=== PATIENT | male | born 1995 | race Caucasian/White ===

== ENCOUNTER 2022-05-21 13:09 | Day surgery (SDC) | payer BC ==
[~2022-05-21 13:09] MED LIST: Iopamidol-370 76% 500 ML MDV (1 ML CHARGE) ONE
[2022-05-21 14:36] LABS: #Basophils 0.1 thou/uL (0.0-0.2); #Eosinphils 0.1 thou/uL (0.0-0.7); #Lymphocytes 2.5 thou/uL (1.20-3.40); %Basophils 0.7 % (0.0-1.0); %Eosinophils 0.8 % (0.0-10.0); %Lymphocytes 23.8 % (21.0-51.0); %Monocytes 9.3 % (0.0-10.0); %Neutrophils 65.4 % (42.0-75.0); Hemoglobin 16.5 g/dL (14.0-18.0); Mean Corpuscular HGB CONC 35.2 g/dL (32.0-36.0); Mean Corpuscular Hemoglobin 30.8 pg (27.0-31.0); Mean Corpuscular Volume 87.4 fl (78.0-98.0); Mean Platelet Volume 7.7 fL (7.4-10.4); Platelet Count 258 10x3/uL (130-400); Red Blood Cell (RBC) Count 5.37 mill/uL (4.70-6.10); White Blood Cell (WBC) Count 10.7 10x3/uL (4.8-10.8)
[2022-05-21 14:46] LABS: ALT (SGPT) 39 U/L (8-55); AST (SGOT) 20 U/L (5-34); Albumin 4.5 g/dL (3.5-5.0); Alkaline Phosphatase 92 U/L (40-110); Anion Gap 16 mmol/L (10-20); BUN (Urea Nitrogen) 10 mg/dL (8.9-20.6); Bilirubin, Total 1.9 mg/dL (0.2-1.2); Calc. Creatinine Clearance 0 mL/min (70-130); Calcium 9.6 mg/dL (7.8-10.44); Carbon Dioxide 23 mmol/L (22-29); Chloride 101 mmol/L (98-107); Estimated GFR 124; Globulin 3.2 g/dL (2.4-3.5); Glucose 83 mg/dL (70-105); Lipase 9 U/L (8-78); Potassium 3.8 mmol/L (3.5-5.1); Protein, Total 7.7 g/dL (6.0-8.3); Sodium 136 mmol/L (136-145)
[2022-05-21 15:14] LABS: Bacteria/HPF None Seen HPF (None Seen); Bilirubin Negative (Negative); Blood, Urine Trace (Negative); Clarity Clear (Clear); Glucose, Urine (Dipstick) Normal (Negative); Ketone, Urine 60 mg/dL (Negative); Leukocyte Negative Leu/uL (Negative); Nitrite Negative (Negative); Protein, Urine (Dipstick) Negative (Neg-Trace); RBC/HPF 0-3 HPF (0-3); Specific Gravity, Urine 1.025 (1.002-1.036); Squamous Epithelial None Seen HPF (0-3); WBC/HPF 0-3 HPF (0-3)
[2022-05-21] MEDS ORDERED: Dicyclomine 20 MG TAB ONE (16:23)
[2022-05-21] MEDS ORDERED: Ketorolac Tromethamine 30 MG/ML VIAL ONE ×2 (16:23→19:31)
[2022-05-21] MEDS ORDERED: Sodium Chloride 0.9% 1,000 ML IV SCH (17:45)
[2022-05-21 18:30] LABS: SARS-CoV-2 NAA Rapid Test Not Detected (NotDetected)
[2022-05-21] MEDS ORDERED: Bupivacaine HCl 0.5%/Epinephrine 1:200,000/PF 30 ml Vial ONE (19:31)
[2022-05-21] MEDS ORDERED: SUGAMMADEX SODIUM 200 MG/2 ML VIAL ONE (19:32)
[2022-05-21] MEDS ORDERED: Fentanyl 250 MCG/5 ML VIAL ONE (19:32)
[2022-05-21] MEDS ORDERED: Ondansetron PF 4 MG/2 ML Vial ONE (19:44)
[2022-05-21] MEDS ORDERED: Succinylcholine Chloride 100 MG/5 ML SYRINGE FS ONE (19:44)
[2022-05-21] MEDS ORDERED: diphenhydrAMINE 50 MG/ML VIAL ONE (19:44)
[2022-05-21] MEDS ORDERED: Rocuronium Bromide 10 MG/ML (10ML VIAL) ONE (19:44)
[2022-05-21] MEDS ORDERED: PROPOFOL 200 MG/20 ML VIAL ONE (19:44)
[2022-05-21] MEDS ORDERED: Dexamethasone 20 MG/5 ML VIAL ONE (19:44)
[2022-05-21] MEDS ORDERED: Lidocaine 1% PF 5 ML VIAL ONE (19:44)
== END 2022-05-21 21:40 | disposition home or self-care (01) ==
LOC: ERS 13:09 → SDC 19:36 → ERS 21:40
PROVIDERS: ATTEND Specialist
PROC: 0DTJ4ZZ Resection of Appendix, Percutaneous Endoscopic Approach (ICD-10-PCS; principal; 2022-05-21)
DX: K35.80 Unspecified acute appendicitis (principal); J30.2 Other seasonal allergic rhinitis; Z20.822 Contact with and (suspected) exposure to COVID-19
CPT/HCPCS: 36415; 74177; 80053; 81003; 81015; 83690; 85025; 88304; 96365; 96375; 96376; A4649; C1713; J1100; J1200; J1885; J2405; J2704; J3010; Q9967; U0002

== ENCOUNTER 2022-05-26 19:21 | Observation (INO) | payer BC ==
[~2022-05-26 19:21] MED LIST changes: +Iopamidol-370 76% 500 ML 1 ML ONE; -Iopamidol-370 76% 500 ML MDV (1 ML CHARGE) ONE
[2022-05-26 20:01] LABS: Hemoglobin 15.9 g/dL (14.0-18.0); Mean Corpuscular Volume 88.4 fl (78.0-98.0); Platelet Count 264 10x3/uL (130-400); RBC Distribution Width 11.8 % (11.5-14.5)
[2022-05-26 20:16] LABS: Band 3 % (5-11); Lymphocytes 16 % (21-51); MDiff Complete? YES; Monocytes 6 % (0-10); Myelocyte 1 % (0-0); Neutrophil 74 % (42-75); Platelet Morphology Comment Appears Adequate; RBC Morphology Normal
[2022-05-26 20:19] LABS: ALT (SGPT) 65 U/L (8-55); AST (SGOT) 48 U/L (5-34); Albumin 4.2 g/dL (3.5-5.0); Alkaline Phosphatase 106 U/L (40-110); Anion Gap 14 mmol/L (10-20); BUN (Urea Nitrogen) 11 mg/dL (8.9-20.6); Bilirubin, Total 1.8 mg/dL (0.2-1.2); Calc. Creatinine Clearance 0 mL/min (70-130); Calcium 9.4 mg/dL (7.8-10.44); Carbon Dioxide 22 mmol/L (22-29); Chloride 101 mmol/L (98-107); Estimated GFR 127; Globulin 3.5 g/dL (2.4-3.5); Glucose 113 mg/dL (70-105); Lipase Less than 4 U/L (8-78); Potassium 3.5 mmol/L (3.5-5.1); Protein, Total 7.7 g/dL (6.0-8.3); Sodium 133 mmol/L (136-145)
[2022-05-26] MEDS ORDERED: Ketorolac Tromethamine 30 MG/ML VIAL ONE (20:23)
[2022-05-26] MEDS ORDERED: Ondansetron PF 4 MG/2 ML Vial ONE (20:23)
[2022-05-26] MEDS ORDERED: Piperacillin/Tazobactam 4.5 GM VIAL ONE (21:49)
[2022-05-26] MEDS ORDERED: Fentanyl 100 MCG/2 ML VIAL ONE (22:39)
[2022-05-26] MEDS ORDERED: Lidocaine 1% w/Epinephrine 1:100K 20 ML VIAL ONE (22:39)
[2022-05-26] MEDS ORDERED: Vancomycin 1 GM/200 ML (FROZEN) BAG ONE (23:34)
[2022-05-27 00:47] VITALS: BMI 41.1
[2022-05-27] MEDS ORDERED: Morphine 4 MG/ML VIAL SLOW IVP PRN (01:33)
[2022-05-27] MEDS ORDERED: diphenhydrAMINE 50 MG/ML VIAL IVP PRN (01:33)
[2022-05-27] MEDS ORDERED: Ondansetron ODT 4 MG TAB SL PRN (01:45)
[2022-05-27] MEDS ORDERED: Ondansetron PF 4 MG/2 ML Vial IVP PRN (01:45)
[2022-05-27] MEDS ORDERED: Acetaminophen 325 MG TAB PO PRN (01:45)
[2022-05-27] MEDS ORDERED: Morphine 4 MG/ML VIAL ONE (02:00)
[2022-05-27] MEDS: Piperacillin/Tazobactam 3.375 GM in Sodium Chloride 0.9% 100 ML IVPB SCH ×2 (02:00→10:34)
[2022-05-27] MEDS: Sodium Chloride 0.9% 1,000 ML IV SCH ×2 (02:11→10:10)
[2022-05-27] MEDS ORDERED: Acetaminophen 325 MG TAB ONE (05:37)
[2022-05-27 07:08] LABS: Bacteria/HPF None Seen HPF (None Seen); Bilirubin Negative (Negative); Blood, Urine Negative (Negative); Clarity Clear (Clear); Glucose, Urine (Dipstick) Normal (Negative); Ketone, Urine 60 mg/dL (Negative); Leukocyte Negative Leu/uL (Negative); Nitrite Negative (Negative); Protein, Urine (Dipstick) 30 mg/dL (Neg-Trace); Squamous Epithelial 0-3 HPF (0-3); WBC/HPF 0-3 HPF (0-3)
[2022-05-27 07:13] LABS: Specific Gravity, Urine Greater than 1.060 (1.002-1.036)
[2022-05-27] MEDS ORDERED: diphenhydrAMINE 50 MG/ML VIAL ONE (09:50)
[2022-05-27] MEDS ORDERED: Piperacillin/Tazobactam 3.375 GM VIAL ONE (10:14)
[2022-05-27 11:36] LABS: SARS-CoV-2 NAA Rapid Test Not Detected (NotDetected)
[2022-05-27] MEDS ORDERED: Ibuprofen 600 MG TAB PO PRN (15:51)
[2022-05-27] MEDS ORDERED: Acetaminophen 500 MG TAB PO PRN (15:51)
[2022-05-27] MEDS ORDERED: traMADol HCl 50 MG TAB PO PRN (15:51)
[2022-05-27] MEDS ORDERED: Acetaminophen 500 MG TAB PO SCH (16:00)
[2022-05-27] MEDS ORDERED: Ibuprofen 200 MG TAB ONE (16:40)
[2022-05-27] MEDS ORDERED: Acetaminophen 500 MG TAB ONE (16:40)
[2022-05-27 17:01] VITALS: BP 114/72; TEMP 99.7
[2022-05-27] MEDS ORDERED: Amoxicillin/Potassium Clav 875 MG TAB PO SCH (21:00)
== END 2022-05-27 17:20 | disposition home or self-care (01) ==
LOC: ERS 19:21 → ERHOLD 22:43
PROVIDERS: ADMIT Specialist; ATTEND Specialist
DX: L02.211 Cutaneous abscess of abdominal wall (principal); E66.01 Morbid (severe) obesity due to excess calories; Z68.41 Body mass index [BMI] 40.0-44.9, adult; Z90.49 Acquired absence of other specified parts of digestive tract; Z20.822 Contact with and (suspected) exposure to COVID-19
CPT/HCPCS: 10060; 36415; 74177; 80053; 81003; 81015; 83605; 83690; 85025; 87040; 87070; 87077; 87086; 87186; 87205; 93005; 96365; 96366; 96367; 96375; 96376; G0378; J1200; J1885; J2270; J2405; J2543; J3010; J3370-JW; J3490; J7050; Q9967; U0002